=== PATIENT | male | born 2005 | race Caucasian/White ===

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

== ENCOUNTER 2024-05-31 21:45 | Emergency (ER) | payer OTHER ==
[~2024-05-31] VITALS: Ht 185.4 cm; Wt 96.6 kg
[2024-05-31 21:56] VITALS: BP_SYST 141; PULSE 52; RESP 14; TEMP 99; O2SAT 99
[2024-05-31] MEDS: LIDOCAINE 1% 10 MG/ML, 20 ML MDV INJ ONE (23:02)
[2024-05-31] MEDS ORDERED: IBUP-1969 PO (23:28)
[2024-05-31] MEDS ORDERED: CEPH-548 PO (23:28)
[2024-05-31 23:55] VITALS: BP_SYST 141; PULSE 55; RESP 16; TEMP 98; O2SAT 99
[2024-05-31] MEDS: BACITRACIN 1 GM OINT TP ONE (23:55)
== END 2024-05-31 23:55 | disposition home or self-care (01) ==
LOC: SED 21:45
DX: L60.0 Ingrowing nail (principal); Z79.899 Other long term (current) drug therapy; Z79.2 Long term (current) use of antibiotics
CPT/HCPCS: 99284; J2001